=== PATIENT | male | born 1995 | race American Indian/Alaskan Native ===

== ENCOUNTER 2020-03-01 08:05 | Emergency (ER) | payer SELFPAY ==
--- NOTE | 2020-03-01 09:34 | XRay Report ---
CHEST 1 VIEW INDICATION / CLINICAL INFORMATION: Chest Pain. COMPARISON: None available. FINDINGS: SUPPORT DEVICES: None. HEART / MEDIASTINUM: No significant abnormality. LUNGS / PLEURA: No significant pulmonary or pleural abnormality. No pneumothorax. ADDITIONAL FINDINGS: No significant additional findings. IMPRESSION: 1. No acute findings. Signer Name: Wan Yee MD Signed: 03/01/2020 9:28 AM Workstation Name: [id number]
--- NOTE | 2020-03-01 14:17 | Emergency Department Report ---
ED General Adult HPI - General Chief complaint: Chest Pain Stated complaint: CHEST PAINS Time Seen by Provider: 03/01/20 13:18 Source: patient Mode of arrival: Ambulatory Limitations: No Limitations - History of Present Illness Initial comments: Patient is a 24-year-old male presents emergency room with complaints of substernal chest pain that began yesterday. He states that it feels like an occasional sharp pain. He states that he feels the pain whenever he lifts his arms or twist his body. He denies any fall or injury. He denies any nausea, vo miting, diarrhea, fever, cough, shortness of breath, leg swelling. He denies any recent travel, recent surgery, sick contact, immobilization, hormone use. He has a past medical history of pericarditis. No allergies to medications. He states his only family cardiac history as his grandfather had an MA in his late 60s. - Related Data Previous Rx's Medication Instructions Recorded Last Taken Type Naproxen [Naprosyn TAB] 500 mg PO BID #14 tablet 03/01/20 Unknown Rx Prednisone [predniSONE 10 mg 10 mg PO .TAPER #1 tab.ds.pk 03/01/20 Unknown Rx (6-Day Pack, 21 Tabs)] Allergies Allergy/AdvReac Type Severity Reaction Status Date / Time No Known Allergies Allergy Unverified 03/01/20 08:15 ED Review of Systems ROS: Stated complaint: CHEST PAINS Other details as noted in HPI Comment: All other systems reviewed and negative ED Past Medical Hx - Past Medical History Previous Medical History?: Yes Additional medical history: pericarditis - Surgical History Past Surgical History?: No - Social History Smoking Status: Never Smoker Substance Use Type: None - Medications Home Medications: Home Medications Medication Instructions Recorded Confirmed Last Taken Type Naproxen [Naprosyn TAB] 500 mg PO BID #14 tablet 03/01/20 Unknown Rx Prednisone [predniSONE 10 mg 10 mg PO .TAPER #1 tab.ds.pk 03/01/20 Unknown Rx (6-Day Pack, 21 Tabs)] ED Physical Exam - General Limitations: No Limitations General appearance: alert, in no apparent distress - Head Head exam: Present: atraumatic, normocephalic - Eye Eye exam: Present: normal appearance - ENT ENT exam: Present: mucous membranes moist - Respiratory Respiratory exam: Present: normal lung sounds bilaterally, chest wall tenderness (reproducible chest wall ttp over the sternum region, worse with movement of the arm and the torso, no crepitus, no deformity, no ecchymosis). Absent: respiratory distress, wheezes, rales, rhonchi, stridor, accessory muscle use, decreased breath sounds, prolonged expiratory - Cardiovascular Cardiovascular Exam: Present: regular rate, normal rhythm, normal heart sounds. Absent: systolic murmur, diastolic murmur, rubs, gallop - Extremities Exam Extremities exam: Absent: pedal edema - Neurological Exam Neurological exam: Present: alert, oriented X3 - Psychiatric Psychiatric exam: Present: normal affect, normal mood - Skin Skin exam: Present: warm, dry, intact ED Course Vital Signs 03/01/20 03/01/20 03/01/20 08:15 14:40 15:15 Temperature 98.0 F Pulse Rate 60 58 L Respiratory 16 18 18 Rate Blood Pressure 117/76 Blood Pressure 121/83 [Left] O2 Sat by Pulse 96 98 98 Oximetry ED Medical Decision Making - EKG Data EKG shows normal: sinus rhythm, axis, intervals, QRS complexes Rate: bradycardia - EKG Data 03/01/20 14:15 early repolarization PACs in couplets no STEMI - Radiology Data Radiology results: report reviewed, image reviewed Ordering Physician: ED MD VALERIA Date of Service: 03/01/20 Procedure(s): XR chest 1V ap Accession Number(s): [id number] cc: ED MD VALERAI Fluoro Time In Minutes: CHEST 1 VIEW INDICATION / CLINICAL INFORMATION: Chest Pain. COMPARISON: None available. FINDINGS: SUPPORT DEVICES: None. HEART / MEDIASTINUM: No significant abnormality. LUNGS / PLEURA: No significant pulmonary or pleural abnormality. No pneumothorax. ADDITIONAL FINDINGS: No significant additional findings. IMPRESSION: 1. No acute findings. Signer Name: Wan rFank MD Signed: 03/01/2020 9:28 AM Workstation Name: [id number] Transcribed By: Dictated By: WAN FRANK Electronically Authenticated By: WAN FRANK Signed Date/Time: 03/01/20927 DD/ 6 TD/TT: - Medical Decision Making Patient is a 24-year-old male presents emergency room with complaints of substernal chest pain that began yesterday. He states that it feels like an occasional sharp pain. He states that he feels the pain whenever he lifts his arms or twist his body. He denies any fall or injury. He denies any nausea, vomiting, diarrhea, fever, cough, shortness of breath, leg swelling. He denies any recent travel, recent surgery, sick contact, immobilization, hormone use. He has a past medical history of pericarditis. No allergies to medications. He states his only family cardiac history as his grandfather had an MA in his late 60s. vitals are normal. on exam:reproducible chest wall ttp over the sternum region, worse with movement of the arm and the torso, no crepitus, no deformity, no ecchymosis CXR: 1. No acute findings. EKG is stable. Examination appears consistent with costochondritis. Patient is PERC criteria negative for PE. Patient is not having clinical signs of pericarditis. Patient given prescri ption for naproxen and prednisone. Advised patient Please take medication as prescribed. Follow-up with your primary care doctor in the next 2 days for reexamination. Return to emergency room immediately for any new or worsening symptoms. - Differential Diagnosis costochrondritis, PE, pleural effusion, PNA, muscle strain, GERD, PUD Critical care attestation.: If time is entered above; I have spent that time in minutes in the direct care of this critically ill patient, excluding procedure time. ED Disposition Clinical Impression: Chest pain Qualifiers: Chest pain type: unspecified Qualified Code(s): R07.9 - Chest pain, unspecified Disposition: DC-01 TO HOME OR SELFCARE Is pt being admited?: No Does the pt Need Aspirin: No Condition: Stable Instructions: Costochondritis, [id number], Chest Wall Pain, [id number], Chest Pain (ED) Additional Instructions: Please take medication as prescribed. Follow-up with your primary care doctor in the next 2 days for reexamination. Return to emergency room immediately for any new or worsening symptoms. Prescriptions: Naproxen [Naprosyn TAB] 500 mg PO BID #14 tablet Prednisone [predniSONE 10 mg (6-Day Pack, 21 Tabs)] 10 mg PO .TAPER #1 tab.ds.pk Referrals: PRIMARY MD BARBARA [Primary Care Provider] - 2-3 Days FRED SILVER MD [Staff Physician] - 2-3 Days [facility] [Provider Group] - 2-3 Days Forms: Work/School Release Form(ED) Time of Disposition: 14:16 Print Language: TONGAN
[2020-03-01 15:18] VITALS: BP 121/83
== END 2020-03-01 14:45 | disposition home or self-care (01) ==
LOC: ED 08:05
DX: R07.89 Other chest pain (principal); Z79.899 Other long term (current) drug therapy
CPT/HCPCS: 71045; 93005; 99283